=== PATIENT | female | born 1990 ===

== ENCOUNTER 2018-10-18 02:31 | Inpatient (IN) ==
[~2018-10-18 02:31] MED LIST: *HR* Nalbuphine 10 MG/ML AMPUL IVP PRN; Famotidine 20 MG/2 ML VIAL IVP PRN; Metoclopramide 10 MG/2 ML VIAL IVP PRN; Naloxone 0.4 MG/ML INJ IVP PRN; Ondansetron 4 MG/2 ML VIAL IVP PRN; Ringers Solution, Lactated 1,000 ML IVC SCH
[2018-10-18 02:44] LABS: Basophils # 0.1 K/mcL (0.0-0.2); Basophils % 0.3 %; Eosinophils # 0.1 K/mcL (0.0-0.6); Eosinophils % 0.5 %; Hematocrit 38.1 % (35.3-44.9); Hemoglobin 12.5 g/dL (11.5-15.4); Immature Granulocytes % 1.2 % (0-4); Lymphocytes # 5.3 K/mcL (0.6-4.6); Lymphocytes % 21.9 %; Mean Corpuscular HGB Conc 32.8 g/dL (31.6-35.5); Mean Corpuscular Hemoglobin 27.7 pg (28.0-33.3); Mean Corpuscular Volume 84.5 fL (83.0-100.0); Mean Platelet Volume 10.1 fL (9.4-12.4); Monocytes # 1.3 K/mcL (0.0-1.3); Monocytes % 5.4 %; Neutrophils # 17.2 K/mcL (1.6-8.9); Platelet Count 306 K/mcL (140-400); Red Blood Count 4.51 M/mcL (3.82-4.97); Red Cell Distribution Width 12.9 % (11.5-14.5); Segmented Neutrophils % 70.7 %
[2018-10-18 03:01] LABS: Amphetamine Screen,Urine Negative ng/mL (Cutoff=1000); Barbiturate Screen,Urine Negative ng/mL (Cutoff=200); Benzodiazepines Screen,Urine Negative ng/mL (Cutoff=200); Cannabinoid Screen,Urine Negative ng/mL (Cutoff = 50); Cocaine Screen,Urine Negative ng/mL (Cutoff= 300); Opiate Screen,Urine Negative ng/mL (Cutoff=300); Phencyclidine Screen,Urine Negative ng/mL (Cutoff=25)
[2018-10-18] MEDS ORDERED: Oxytocin 20 units/ LR 1000 mL 20 UNIT/1,000 ML BAG IVC ONE ×2 (03:32→06:02)
--- NOTE | 2018-10-18 04:09 | OB/GYN Procedure Note ---
Delivery - Delivery Date: 10/18/18 Provider: Sheri Rocha Intrapartum events: none Delivery induction: none Delivery monitor: external FHT, external uterine Anesthesia: none Quantitated Blood Loss: 100 - (s) A Infant Delivery Date: 10/18/18 Infant Delivery Time: 03:23 Presentation: vertex Position: CHELSEA Route of delivery: Gender: Male Viability: Viable at 1 minute: 7 at 5 mins: 9 Shoulder Dystocia: not encountered Specimens collected: cord blood Placenta: spontaneous Cord: 3 umbilical vessels - Repair Episiotomy: none Laceration Description: Perineal - 1st Degree - Complications Delivery complications: meconium - Disposition Mom disposition: stable in LDR disposition: stable in LDR - Comments Comments: Pt presented in active labor and progressed rapidly to complete and +2. In a standing/squatting position the patient pushed effectively to for viable male "Floyd" with apgars 7 at one minute and 9 at five minutes. At the time of a large gush of MSF was noted. No nuchal cord and no shoulder dystocia was encountered. The infant was passed through the patients legs and the mother was moved to the bed. THe was then placed on the mother's chest where the cord was allowed to stop pulsing before it was clamped and cut by the father. The placenta then delivered spontaneous and intact. A small first degree laceration was noted and was repaired with one figure of eight using 4-0 monocryl. Mother and baby stable and following . EBL 100ml.
--- NOTE | 2018-10-18 04:15 | OB/GYN History & Physical ---
Date of Encounter: 10/18/18 Time of Encounter: 02:45 Assessment and Plan (1) 40 weeks gestation of Current visit: Yes Status: Acute (2) Active labor at term Current visit: Yes Status: Acute Admit for expectant management. Intermittent monitoring. Anticipate . (3) Rh negative status during in third trimester, antepartum Current visit: Yes Status: Acute Rhogam if indicated. History of Present Illness Chief complaint: labor HPI: Ms. Mirza is a 28 year old female presenting at 40w2d with c/o contrac tions every 2-6 minutes. Per RN pt /-1 upon arrival. No other complaints. Good FM. uncomplicated. A negative Rubella immune Serologies negative GBS negative Past Med Surg Social Fam HX - Past Medical History Medical history: asthma Psychiatric history: no psych history - Past Surgical History Additional surgical history: wisdom teeth - Social History Smoking Status: Never smoker Smokeless Tobacco Status: No Alcohol use: none Drug use: none Obstetrical History - Pregnancies : 2 Para: 1 Term: 1 : 0 Ab's: 0 Livin Medications and Allergies Polyethylene Glycol 3350 [MiraLAX] 17 gm PO DAILY 10/18/18 [History] Vits96/Iron Fum/Folic [ Tablet] 1 each PO DAILY 10/18/18 [Hi story] Allergy/AdvReac Type Severity Reaction Status Date / Time Sulfa (Sulfonamide Allergy See Verified 10/18/18 02:28 Antibiotics) Comments Review of System OB All systems PM: reviewed and no additional remarkable complaints except as stated Exam - Constitutional Constitutional: well developed, well nourished, severe distress (breathing through contractions) - HEENT HEENT: Mucus Membranes Moist - Lungs Respiratory exam: CTAB - Cardiovascular Cardiovascular exam: RRR - Abdomen Abdomen: Present: gravid - Extremities Extremities exam: normal inspection - Cervix Dilation: 6 Effacement: 90 Station: -1 - Anus/Rectum Anus/Rectum: Present: normal perianal skin Results Result Diagrams: 10/18/18 02:23 Abnormal lab results WBC 24.3 K/mcL (4.3-11.1) H 10/18/18 02:23 MCH 27.7 pg (28.0-33.3) L 10/18/18 02:23 Neutrophils # 17.2 K/mcL (1.6-8.9) H 10/18/18 02:23 Lymphocytes # 5.3 K/mcL (0.6-4.6) H 10/18/18 02:23 All other labs normal. - VTE Reasons for not Prescribing Prophylaxis: Treatment not Indicated - Low risk for VTE
[2018-10-18] MEDS ORDERED: Rho Immune Globulin 1,500 UNIT SYRINGE IM PRN (06:29)
[2018-10-18] MEDS ORDERED: Lanolin 28 GM TUBE TP PRN (06:29)
[2018-10-18] MEDS ORDERED: Acetaminophen 325 MG TABLET PO PRN (06:29)
[2018-10-18] MEDS ORDERED: Benzocaine/Menthol 56 GM AEROSOL SPRAY TP PRN (06:29)
[2018-10-18] MEDS ORDERED: Oxytocin 20 units/ LR 1000 mL 20 UNIT/1,000 ML BAG IVC SCH (06:29)
[2018-10-18] MEDS: Ibuprofen 600 MG TABLET PO PRN ×2 (06:50→21:10)
[2018-10-18] MEDS: Prenatal Vit/FA 1 EACH TABLET PO SCH (09:04)
[2018-10-19 08:21] VITALS: BP 98/49
[2018-10-19] MEDS: Prenatal Vit/FA 1 EACH TABLET PO SCH (08:26)
[2018-10-19] MEDS: Ibuprofen 600 MG TABLET PO PRN (11:06)
--- NOTE | 2018-10-19 13:20 | Discharge Summary ---
Date of Encounter: 10/19/18 Time of Encounter: 13:18 - Discharge Diagnosis (1) Vaginal delivery Priority: Primary Status: Acute Comments: Stable in PP, pain well managed on po pain medication, tolerates diet, desires discharge. - Discharge Medications Prescriptions: Ibuprofen [Motrin] 600 mg PO Q6HR PRN #60 tablet PRN Reason: Cramping Docusate [Colace] 100 mg PO BID #60 capsule Home Medications: Polyethylene Glycol 3350 [MiraLAX] 17 gm PO DAILY 10/18/18 [History] Vits96/Iron Fum/Folic [ Tablet] 1 each PO DAILY 10/18/18 [History] Acetaminophen [Tylenol] 650 mg PO Q6HR PRN tablet 10/19/18 [Rx] Benzocaine/Menthol [place] [Dermoplast [place]] 1 appl TP QID PRN aerosol 10/19/18 [Rx] Docusate [Colace] 100 mg PO BID #60 capsule 10/19/18 [Rx] Ibuprofen [Motrin] 600 mg PO Q6HR PRN #60 tablet 10/19/18 [Rx] Lanolin 1 appl TP Q4HR PRN tube 10/19/18 [Rx] Allergies/Adverse Reactions: Allergy/AdvReac Type Severity Reaction Status Date / Time Sulfa (Sulfonamide Allergy See Verified 10/18/18 02:28 Antibiotics) Comments Data Procedures and tests throughout hospitalization: Laboratory Tests 10/18/18 10/18/18 10/18/18 02:23 02:24 04:17 WBC 24.3 H RBC 4.51 Hgb 12.5 Hct 38.1 MCV 84.5 MCH 27.7 L MCHC 32.8 RDW 12.9 Plt Count 306 MPV 10.1 Immature Gran % 1.2 Seg Neutrophils % 70.7 Lymphocytes % 21.9 Monocytes % 5.4 Eosinophils % 0.5 Basophils % 0.3 Neutrophils # 17.2 H Lymphocytes # 5.3 H Monocytes # 1.3 Eosinophils # 0.1 Basophils # 0.1 Urine Opiates Screen Negative Ur Barbiturates Screen Negative Ur Phencyclidine Scrn Negative Ur Amphetamines Screen Negative U Benzodiazepines Scrn Negative Urine Cocaine Screen Negative U Marijuana (THC) Screen Negative Ur Drug Screen Interp See Below Screen NEGATIVE Baby's Blood Type A RH POSITIVE Mother's Blood Type A RH NEGATIVE Rhogam Indicated YES Rhogam Req for Mother 1 Date of admission: 10/18/18 02:31 Primary care physician: PCP NONE Consults: 10/18/18 06:29 Consult to Grievance Manager [CONS] Routine Comment: Vaginal delivery, consult needed Discharging clinician: Patti Cisneros Anticipated date of discharge: 10/19/18 - Patient Status Disposition: Home, Self-Care Condition: Good Functional capacity at discharge: independent ambulation Overall status at discharge: patient is progressing back to baseline - Discharge Instructions Follow Up With: NONE,PCP [Primary Care Provider] - - Diet and Activity Activity: resume usual activities as tolerated Diet: regular diet Hospital Course Reason for admission: active labor, IUP at term Delivery: Episiotomy: none Other procedures: none complications: none Discharge diagnosis: IUP at term delivered baby: male Hospital course: Delivery - Delivery Date: 10/18/18 Provider: Sheri Rocha Intrapartum events: none Delivery induction: none Delivery monitor: external FHT, external uterine Anesthesia: none Quantitated Blood Loss: 100 - (s) Infant A Delivery Date: 10/18/18 Delivery Time: 03:23 Presentation: vertex Position: CHELSEA Route of delivery: Gender: Male Viability: Viable at 1 minute: 7 at 5 mins: 9 Shoulder Dystocia: not encountered Specimens collected: cord blood Placenta: spontaneous Cord: 3 umbilical vessels - Repair Episiotomy: none Laceration Description: Perineal - 1st Degree - Complications Delivery complications: meconium - Disposition Mom disposition: stable in PP and appropriate for discharge Time Attestation: Total time spent providing and/or coordinating discharge services: Time Spent: Less than 30 minutes Exam - Constitutional Vitals: Temp Pulse Resp BP Pulse Ox 97.9 F 85 16 98/49 98 10/19/18 07:30 10/19/18 11:09 10/19/18 07:30 10/19/18 07:30 10/18/18 20:05 General appearance IM: A&O X 3 - Respiratory Respiratory exam: Present: CTAB - Cardiovascular Cardiovascular exam IM: Present: RRR - GI/Abdominal GI/Abdominal exam IM: soft - Uterine Tone: Firm Uterus Position: 2 Fingers Below Umbilicus - Extremities Exam Extremities exam IM: Present: normal capillary refill, normal inspection - Neurological Exam Neurological exam: normal gait, oriented X3 - Psychiatric Additional comments: Reports good mood
== END 2018-10-19 15:42 | disposition home or self-care (01) | DRG 807 ==
LOC: 1NENULAB → 1NENUOBS 06:27
PROVIDERS: ADMIT Registered Nurse; ATTEND Registered Nurse